=== PATIENT | male | born 1955 | race Caucasian/White ===

== ENCOUNTER 2024-06-17 11:41 | Inpatient (IN) | payer MEDICARE, OTHER ==
[~2024-06-17] VITALS: Ht 182.9 cm; Wt 90.7 kg
[2024-06-17 12:16] LABS: BASOPHILS # (AUTO) 0.1 K/uL (0.0-0.2); BASOPHILS % (AUTO) 0.5 % (0.0-2.0); EOSINOPHILS # (AUTO) 0.1 K/uL (0.0-0.7); EOSINOPHILS % (AUTO) 1.2 % (0.0-6.0); HEMATOCRIT 48 % (39-51); HEMOGLOBIN 16.1 g/dL (13.5-17.5); LYMPHOCYTES # (AUTO) 1.6 K/uL (0.8-4.8); LYMPHOCYTES % (AUTO) 12.8 % (20.0-44.0); MEAN CORPUSCULAR HEMOGLOBIN 31 PG (26.0-33.0); MEAN CORPUSCULAR HGB CONC 34 g/dl (31.0-36.0); MEAN CORPUSCULAR VOLUME 91 fL (80-96); MONOCYTES # (AUTO) 0.5 K/uL (0.1-1.30); MONOCYTES % (AUTO) 3.9 % (2.0-12.0); NEUTROPHILS # (AUTO) 9.9 K/uL (1.8-8.9); NEUTROPHILS % (AUTO) 81.6 % (43.0-81.0); PLATELET COUNT (AUTO) 206 K/uL (150-450); RED BLOOD CELL COUNT(AUTO) 5.27 MIL/uL (4.5-6.0); RED CELL DISTRIBUTION WIDTH 13.3 % (11.5-15.0); WHITE BLOOD COUNT (AUTO) 12.1 K/uL (4.3-11.0)
[2024-06-17 12:23] LABS: CALCIUM, SERUM 8.5 mg/dL (8.5-10.1); CREATININE 1.2 mg/dL (0.6-1.3); POTASSIUM 4.9 mmol/L (3.5-5.1)
[2024-06-17 12:24] LABS: INR 1.16 (0.91-1.10); PARTIAL THROMBOPLASTIN TIME 24.5 SEC (24.3-34.3); PROTHROMBIN TIME 12.2 SECS (9.2-11.1)
[2024-06-17] MEDS ORDERED: ONDANSETRON HCL/PF 4 MG/2 ML VIAL ONE (12:52)
[2024-06-17] MEDS ORDERED: MORPHINE SULFATE INJ 4 MG/ML DISP.SYRIN ONE (12:52)
[2024-06-17] MEDS: ONDANSETRON HCL/PF 4 MG/2 ML VIAL IV ONE (13:04)
[2024-06-17] MEDS: MORPHINE SULFATE INJ 2 MG/ML DISP.SYRIN IV ONE (13:09)
[2024-06-17] MEDS: HYDROMORPHONE 1 MG/1 ML DISP.SYRIN IV PRN ×2 (15:24→20:03)
[2024-06-17] MEDS ORDERED: AMLO5TAB4 PO (15:28)
[2024-06-17] MEDS ORDERED: SEMA1PEN SQ (15:28)
[2024-06-17] MEDS ORDERED: EMPA25TA PO (15:28)
[2024-06-17] MEDS ORDERED: CLOB15CR4 TP (15:28)
[2024-06-17] MEDS ORDERED: SIMV10TA2 PO (15:28)
[2024-06-17] MEDS ORDERED: PANT20TA2 PO (15:28)
[2024-06-17] MEDS ORDERED: IBUP-1490 PO (15:28)
[2024-06-17] MEDS ORDERED: ICOS1CAP PO (15:28)
[2024-06-17] MEDS ORDERED: OLME20TA13 PO (15:28)
[2024-06-17] MEDS ORDERED: ASPI-1169 PO (15:28)
[2024-06-17] MEDS ORDERED: CHOL200026 PO (15:28)
[2024-06-17] MEDS ORDERED: DICL100G34 TP (15:28)
[2024-06-17] MEDS ORDERED: LINA5TAB PO (15:28)
[2024-06-17 15:35] VITALS: BP 117/78; TEMP 98.4; O2SAT 98
[2024-06-17] MEDS ORDERED: DEXTROSE 50%-WATER 50 ML DISP.SYRIN IV PRN (16:00)
[2024-06-17] MEDS ORDERED: ONDANSETRON HCL/PF 4 MG/2 ML VIAL IVP PRN (16:00)
[2024-06-17] MEDS ORDERED: MAGNESIUM HYDROXIDE 30 ML UDC PO PRN (16:00)
[2024-06-17] MEDS: BLOOD SUGAR DIAGNOSTIC 1 EACH STRIP IN SCH (17:44)
[2024-06-17] MEDS: AMLODIPINE BESYLATE 5 MG TABLET PO SCH (17:45)
[2024-06-17] MEDS: SIMVASTATIN 10 MG TABLET PO SCH (17:45)
[2024-06-17] MEDS: IV NS 0.9% 1,000 ML IV PRN (17:46)
[2024-06-17] MEDS: ACETAMINOPHEN 325 MG TABLET PO PRN (17:46)
[2024-06-17] MEDS: INSULIN REGULAR, HUMAN 100 UNIT/ML 3 ML VIAL SQ PRN (17:59)
[2024-06-17 20:00] VITALS: BP 120/66; TEMP 98.1; O2SAT 97
[2024-06-18 07:00] VITALS: BP_SYST 119; BP_SYST 123; BP_DIAS 69; BP_DIAS 75; TEMP 97.3; TEMP 98.2; O2SAT 94; O2SAT 98
[2024-06-18 07:41] LABS: CALCIUM, SERUM 8.9 mg/dL (8.5-10.1); CREATININE 1.1 mg/dL (0.6-1.3); MAGNESIUM 2.4 mg/dL (1.8-2.4); PHOSPHORUS 3.7 mg/dL (2.5-4.9)
[2024-06-18] MEDS: PANTOPRAZOLE 40 MG TABLET.DR PO SCH (07:56)
[2024-06-18 08:08] LABS: BASOPHILS % (AUTO) 0.2 % (0.0-2.0); EOSINOPHILS # (AUTO) 0.1 K/uL (0.0-0.7); EOSINOPHILS % (AUTO) 1.3 % (0.0-6.0); HEMATOCRIT 43 % (39-51); HEMOGLOBIN 14.8 g/dL (13.5-17.5); LYMPHOCYTES # (AUTO) 2.7 K/uL (0.8-4.8); LYMPHOCYTES % (AUTO) 29.4 % (20.0-44.0); MEAN CORPUSCULAR HEMOGLOBIN 31 PG (26.0-33.0); MEAN CORPUSCULAR HGB CONC 35 g/dl (31.0-36.0); MEAN CORPUSCULAR VOLUME 91 fL (80-96); MONOCYTES # (AUTO) 0.9 K/uL (0.1-1.30); NEUTROPHILS # (AUTO) 5.5 K/uL (1.8-8.9); NEUTROPHILS % (AUTO) 59.1 % (43.0-81.0); PLATELET COUNT (AUTO) 192 K/uL (150-450); RED BLOOD CELL COUNT(AUTO) 4.71 MIL/uL (4.5-6.0); RED CELL DISTRIBUTION WIDTH 13.2 % (11.5-15.0); WHITE BLOOD COUNT (AUTO) 9.3 K/uL (4.3-11.0)
[2024-06-18 08:57] LABS: APPEARANCE,URINE CLEAR (CLEAR); BILIRUBIN,URINE NEGATIVE (NEGATIVE); BLOOD, URINE NEGATIVE Ery/uL (NEGATIVE); COLOR,URINE YELLOW (YELLOW); KETONES,URINE 1+ mg/dL (NEGATIVE); LEUKOCYTE ESTERASE ,URINE NEGATIVE (NEGATIVE); NITRITE, URINE NEGATIVE (NEGATIVE); PH,URINE 5.5 (5.0-8.0); PROTEIN,URINE NEGATIVE (NEGATIVE); UGLUCOSE 3+ mg/dL (NEGATIVE); UROBILINOGEN,URINE 0.2 EU/dL (0.2)
[2024-06-18] MEDS: EMPAGLIFLOZIN 25 MG TABLET PO SCH (08:58)
[2024-06-18] MEDS: LINAGLIPTIN 5 MG TABLET PO SCH (08:58)
[2024-06-18] MEDS: LOSARTAN POTASSIUM 50 MG TABLET PO SCH (08:59)
[2024-06-18 10:26] LABS: ADD URINE CULTURE NO; BACTERIA,URINE Rare /HPF (None Seen); RBC,URINE 0-2 /HPF (0-2); SQUAMOUS EPITHELIAL CELL,UR None Seen /HPF (None Seen); URIC ACID CRYSTALS,URINE Few /HPF (None Seen); WBC,URINE 0-2 /HPF (0-3)
[2024-06-18 16:00] VITALS: BP 110/67; TEMP 97.9; O2SAT 96
[2024-06-18 20:00] VITALS: BP 126/69; TEMP 97.3; O2SAT 98
[2024-06-19 07:35] LABS: BASOPHILS % (AUTO) 0.3 % (0.0-2.0); EOSINOPHILS # (AUTO) 0.3 K/uL (0.0-0.7); EOSINOPHILS % (AUTO) 3.1 % (0.0-6.0); HEMATOCRIT 43 % (39-51); HEMOGLOBIN 14.7 g/dL (13.5-17.5); LYMPHOCYTES # (AUTO) 1.2 K/uL (0.8-4.8); LYMPHOCYTES % (AUTO) 14.9 % (20.0-44.0); MEAN CORPUSCULAR HEMOGLOBIN 31 PG (26.0-33.0); MEAN CORPUSCULAR HGB CONC 35 g/dl (31.0-36.0); MEAN CORPUSCULAR VOLUME 90 fL (80-96); MONOCYTES # (AUTO) 0.7 K/uL (0.1-1.30); MONOCYTES % (AUTO) 8.7 % (2.0-12.0); PLATELET COUNT (AUTO) 158 K/uL (150-450); RED BLOOD CELL COUNT(AUTO) 4.72 MIL/uL (4.5-6.0); RED CELL DISTRIBUTION WIDTH 13.2 % (11.5-15.0); WHITE BLOOD COUNT (AUTO) 8.3 K/uL (4.3-11.0)
[2024-06-19 08:00] VITALS: BP 120/69; TEMP 98.6; O2SAT 96
[2024-06-19 16:00] VITALS: BP_SYST 120; BP_SYST 138; BP_DIAS 60; BP_DIAS 74; TEMP 98.6; O2SAT 94; O2SAT 96
[2024-06-19 20:00] VITALS: BP 138/79; TEMP 99; O2SAT 96
[2024-06-20 08:00] VITALS: BP 134/77; TEMP 100.2; O2SAT 96
[2024-06-20 08:08] LABS: BASOPHILS % (AUTO) 0.2 % (0.0-2.0); EOSINOPHILS # (AUTO) 0.1 K/uL (0.0-0.7); HEMATOCRIT 43 % (39-51); HEMOGLOBIN 14.8 g/dL (13.5-17.5); LYMPHOCYTES # (AUTO) 1.2 K/uL (0.8-4.8); LYMPHOCYTES % (AUTO) 14.7 % (20.0-44.0); MEAN CORPUSCULAR HEMOGLOBIN 31 PG (26.0-33.0); MEAN CORPUSCULAR HGB CONC 34 g/dl (31.0-36.0); MEAN CORPUSCULAR VOLUME 90 fL (80-96); MONOCYTES # (AUTO) 0.9 K/uL (0.1-1.30); MONOCYTES % (AUTO) 10.7 % (2.0-12.0); NEUTROPHILS # (AUTO) 6.1 K/uL (1.8-8.9); NEUTROPHILS % (AUTO) 73.4 % (43.0-81.0); PLATELET COUNT (AUTO) 163 K/uL (150-450); RED BLOOD CELL COUNT(AUTO) 4.83 MIL/uL (4.5-6.0); RED CELL DISTRIBUTION WIDTH 13.2 % (11.5-15.0); WHITE BLOOD COUNT (AUTO) 8.3 K/uL (4.3-11.0)
[2024-06-20] MEDS ORDERED: VANCOMYCIN 1 GM VIAL ONE (08:32)
[2024-06-20] MEDS ORDERED: ANESTHESIA TRAY IN PYXIS 1 EA TRAY MC ONE (08:32)
[2024-06-20] MEDS ORDERED: BUPIVACAINE 0.5 % PF 150 MG/30 ML VIAL ONE (08:32)
[2024-06-20] MEDS ORDERED: ROCURONIUM BROMIDE 50 MG/5 ML ONE (08:52)
[2024-06-20] MEDS ORDERED: FENTANYL PF 100MCG/2ML AMPUL ONE (08:52)
[2024-06-20 10:08] LABS: ALBUMIN 3.5 g/dL (3.4-5.0); BILIRUBIN,TOTAL 0.5 mg/dL (0.2-1.0); CALCIUM, SERUM 8.2 mg/dL (8.5-10.1); POTASSIUM 4.5 mmol/L (3.5-5.1); TOTAL PROTEIN, SERUM 6.8 g/dL (6.4-8.2)
[2024-06-20] MEDS ORDERED: ONDANSETRON HCL/PF 4 MG/2 ML VIAL IVP PRN (10:30)
[2024-06-20] MEDS ORDERED: FENTANYL PF 100MCG/2ML AMPUL IV PRN (10:30)
[2024-06-20] MEDS ORDERED: MORPHINE SULFATE INJ 10 MG/ML DISP.SYRIN IV PRN (10:30)
[2024-06-20] MEDS ORDERED: MEPERIDINE HCL/PF 50 MG/ML DISP.SYRIN IV PRN (10:30)
[2024-06-20] MEDS ORDERED: METOCLOPRAMIDE HCL 10 MG/2 ML VIAL IV PRN (10:30)
[2024-06-20] MEDS: BLOOD SUGAR DIAGNOSTIC 1 EACH STRIP VI ONE (11:23)
[2024-06-20] MEDS ORDERED: MORPHINE SULFATE INJ 4 MG/ML DISP.SYRIN IV PRN (12:00)
[2024-06-20] MEDS: IV D5/0.45 NACL W/20 MEQ KCL 1L IV SCH (12:52)
[2024-06-20] MEDS: CEFAZOLIN 2 GM in IV D5W 100 ML IV SCH (17:45)
[2024-06-20 20:00] VITALS: BP 110/74; TEMP 99; O2SAT 95
[2024-06-21 07:21] LABS: BASOPHILS % (AUTO) 0.2 % (0.0-2.0); EOSINOPHILS % (AUTO) 0.5 % (0.0-6.0); HEMATOCRIT 37 % (39-51); HEMOGLOBIN 12.6 g/dL (13.5-17.5); LYMPHOCYTES # (AUTO) 1.8 K/uL (0.8-4.8); LYMPHOCYTES % (AUTO) 21.4 % (20.0-44.0); MEAN CORPUSCULAR HEMOGLOBIN 31 PG (26.0-33.0); MEAN CORPUSCULAR HGB CONC 34 g/dl (31.0-36.0); MEAN CORPUSCULAR VOLUME 90 fL (80-96); MONOCYTES % (AUTO) 12.3 % (2.0-12.0); NEUTROPHILS # (AUTO) 5.5 K/uL (1.8-8.9); NEUTROPHILS % (AUTO) 65.6 % (43.0-81.0); PLATELET COUNT (AUTO) 162 K/uL (150-450); RED BLOOD CELL COUNT(AUTO) 4.07 MIL/uL (4.5-6.0); RED CELL DISTRIBUTION WIDTH 13.1 % (11.5-15.0); WHITE BLOOD COUNT (AUTO) 8.4 K/uL (4.3-11.0)
[2024-06-21 08:25] LABS: CALCIUM, SERUM 7.9 mg/dL (8.5-10.1); CREATININE 1.2 mg/dL (0.6-1.3); MAGNESIUM 2.1 mg/dL (1.8-2.4); PHOSPHORUS 2.8 mg/dL (2.5-4.9); POTASSIUM 4.1 mmol/L (3.5-5.1)
[2024-06-21] MEDS ORDERED: ENOX40DI SQ (12:08)
[2024-06-21] MEDS ORDERED: HYDR-3980 PO (12:08)
[2024-06-21] MEDS: HYDROCODONE/APAP 10/325MG TABLET PO PRN (13:20)
[2024-06-21 17:18] VITALS: BP 130/72
[2024-06-21 18:16] VITALS: TEMP 98.7
== END 2024-06-21 20:30 | DRG 522 ==
LOC: ER 11:45 → MED 15:45
PROVIDERS: ADMIT Nurse Practitioner Family; ATTEND Student in an Organized Health Care Education/Training Program
PROC: 0SRS0JA Replacement of Left Hip Joint, Femoral Surface with Synthetic Substitute, Uncemented, Open Approach (ICD-10-PCS; principal; 2024-06-20)
DX: S72.012A Unspecified intracapsular fracture of left femur, initial encounter for closed fracture (principal); W01.0XXA Fall on same level from slipping, tripping and stumbling without subsequent striking against object, initial encounter; E11.9 Type 2 diabetes mellitus without complications; I10 Essential (primary) hypertension; D72.829 Elevated white blood cell count, unspecified; Z87.891 Personal history of nicotine dependence; Y93.9 Activity, unspecified; Y92.015 Private garage of single-family (private) house as the place of occurrence of the external cause; R79.89 Other specified abnormal findings of blood chemistry
CPT/HCPCS: 36415; 71045-TC; 72192-TC; 73020; 73502; 73552; 80048-TC; 80053-TC; 80061-TC; 81001; 82962-TC; 83735-TC; 84100-TC; 85025-TC; 85730-TC; 86850-TC; 93307-TC; 97110-TC; 97116-TC; 97530-TC; A4223; G0378; J0690; J1100; J1171; J1815; J1885; J2270; J2405; J2704; J2765; J3010; J3370; J3480; J3490; J7030; J7060